=== PATIENT | female | born 1935 | race Caucasian/White ===

== ENCOUNTER 2016-12-20 01:58 | Inpatient (IN) | payer MEDICARE, BC ==
[2016-12-20] VITALS (52 sets, daily range): BP systolic 124–169; BP diastolic 62–115; Ht 167.6 cm; Wt 68.2 kg
[~2016-12-20] VITALS: Ht 167.6 cm; Wt 68.2 kg
[2016-12-20 03:11] LABS: BASOPHILS 0.2 % (0.0-2.0); EOSINOPHILS 0.2 % (0-7); HEMATOCRIT 44.7 % (36.0-48.0); HEMOGLOBIN 14.8 g/dL (12-16); IMMATURE GRANULOCYTES 0.5 % (0-5); LYMPHOCYTES 12.5 % (15-50); MCH 30.6 pg (26.0-34.0); MCHC 33.1 g/dL (31.0-37.0); MCV 92.5 fL (80.0-100.0); MEAN PLATELET VOLUME 12.3 fL (7.4-10.4); MONOCYTES 1.6 % (2-11); PLATELET COUNT 174 10x3/uL (130-400); RBC 4.83 10x6/uL (4.00-5.40); RDW 13.6 % (11.5-14.5); WBC 4.4 10x3/uL (4.8-10.8)
[2016-12-20 03:31] LABS: APTT 44.7 SECONDS (22.8-39.4); INR 1.34 (0.85-1.17); PROTIME 16.4 SECONDS (11.6-15.0)
[2016-12-20 03:32] LABS: ALBUMIN 3.4 g/dL (3.4-5.0); ANION GAP 11.8 mmol/L (8-16); BILIRUBIN - TOTAL 0.97 mg/dL (0.2-1.3); CALCIUM 8.7 mg/dL (8.5-10.1); CREATININE - SERUM 1.2 mg/dL (0.6-1.3); POTASSIUM - SERUM 3.8 mmol/L (3.5-5.1); PROTEIN - SERUM 6.8 g/dL (6.4-8.2)
[2016-12-20 03:48] LABS: TROPONIN-I 0.338 ng/mL (0.000-0.060)
[2016-12-20] MEDS ORDERED: CALCIUM 250+D T1 TAB PO (04:27)
[2016-12-20] MEDS ORDERED: LASIX40 MG PO (04:27)
[2016-12-20] MEDS ORDERED: COREG25 MG PO (04:27)
[2016-12-20] MEDS ORDERED: PRESERVISION AR1 CAP PO (04:28)
[2016-12-20] MEDS ORDERED: KLOR-CON 1010 MEQ PO (04:28)
[2016-12-20] MEDS ORDERED: HYDRALAZINE HCL50 MG PO (04:29)
[2016-12-20] MEDS ORDERED: LEVO-T100 MCG PO (04:29)
[2016-12-20] MEDS ORDERED: BAYER CHEWABLE81 MG PO (04:30)
[2016-12-20] MEDS ORDERED: PROVENTIL HFA6.7 GM INH (04:30)
[2016-12-20] MEDS ORDERED: ATIVAN0.5 MG PO (04:30)
[2016-12-20] MEDS ORDERED: SYSTANE 0.3-0.4%5 ML EACH EYE (04:31)
[2016-12-20] MEDS ORDERED: COZAAR100 MG PO (04:32)
--- NOTE | 2016-12-20 05:00 | NUR ---
0500: Pt rec'd from ER and placed in Room 2308 x3 RNs. Pt able to "scoot" over to bed by self. Pt answers questions with clear verbal responses. Pt has previous hx of cataracts sx. Pt moves x4 extrem vs gravity with no tremor seen. Pt able to stick tongue out with no deviation seen. Pt denies tingling, numbness, or pain at this time.
--- NOTE | 2016-12-20 05:30 | NUR ---
0530: Family here and update provided. Verbalized understanding.
[2016-12-20 05:58] LABS: APPEARANCE CLEAR (CLEAR); BILIRUBIN NEGATIVE (NEGATIVE); COLOR YELLOW (YELLOW); GLUCOSE NEGATIVE (NEGATIVE); KETONE NEGATIVE (NEGATIVE); LEUKOCYTE ESTERASE NEGATIVE (NEGATIVE); NITRITE NEGATIVE (NEGATIVE); PROTEIN NEGATIVE (NEGATIVE); SPECIFIC GRAVITY 1.015 (1.005-1.020); UROBILINOGEN NORMAL (NORMAL)
[2016-12-20 09:29] LABS: TROPONIN-I 0.302 ng/mL (0.000-0.060)
--- NOTE | 2016-12-20 11:00 | NUR ---
NO NOTED CHANGES TO PRIMARY ASSESSMENT. SEE IV FLOW SHEET FOR IV MEDICATION CHANGES
--- NOTE | 2016-12-20 12:29 | NUR ---
NOTED A-FLUTTER ON MONITOR, DR. POWER PAGED WITH NEW ORDER TO CUT CARDIZEM RATE IN HALF, THIS IS DONE.
--- NOTE | 2016-12-20 20:05 | NUR ---
2005: Pt HR 55-60 cAFIB on monitor. Cardizem stopped at this time. Pt SBP 120's.
--- NOTE | 2016-12-20 21:00 | NUR ---
2100: Pt requested something to sleep. Pt states she takes something everynight. Ativan PO admin as per orders.
--- NOTE | 2016-12-20 22:55 | NUR ---
2255: Pt attempting to get OOB. Pt states; "I need to go to bed." Pt assisted back to bed x2 RNs and reoriented via verbal. Pt repositioned for comfort. Pt remains cAFIB 60's on CM with SBP 120-130. Pt moves x4 extrem and other neuro changes from assessment.
[2016-12-21] VITALS (22 sets, daily range): BP systolic 104–185; BP diastolic 55–403
--- NOTE | 2016-12-21 02:00 | NUR ---
0200: Pt resting with eyes closed and open to verbal. LOCx3. Pt continues to remove BP cuff repeatedly. Discussed importance with patient and agrees to keep on.
--- NOTE | 2016-12-21 03:35 | NUR ---
0335: Pt attempting to get OOB. Pt not oriented to place or time. Verbal reorientation given. Pt moves x4 extrem to verbal commands. Pt pupils = round. Pt denies tingling or numbness. No facial droop seen and tongue is midline. Pt remains cAFIB 60's on CM with SBP 140's. Pt removes BP cuff repeatedly even after reorientation. Pt remains breathing RA with RR18x with SPO2 97%. Pt repositioned sitting up HOB 45 degrees and lights on in room. Provided wash cloth for face as well and pt utilizes. Bed Alarm on and audible.
[2016-12-21 04:05] LABS: BASOPHILS 0.1 % (0.0-2.0); EOSINOPHILS 0.1 % (0-7); HEMATOCRIT 42.2 % (36.0-48.0); HEMOGLOBIN 13.8 g/dL (12-16); IMMATURE GRANULOCYTES 0.2 % (0-5); LYMPHOCYTES 11.2 % (15-50); MCH 30.4 pg (26.0-34.0); MCHC 32.7 g/dL (31.0-37.0); MEAN PLATELET VOLUME 12.8 fL (7.4-10.4); MONOCYTES 8.6 % (2-11); NEUTROPHILS 79.8 % (40-80); PLATELET COUNT 163 10x3/uL (130-400); RBC 4.54 10x6/uL (4.00-5.40); RDW 13.7 % (11.5-14.5)
[2016-12-21 04:14] LABS: CALCIUM 8.5 mg/dL (8.5-10.1); CARBON DIOXIDE 29.7 mmol/L (21.0-32.0); CREATININE - SERUM 1.2 mg/dL (0.6-1.3); POTASSIUM - SERUM 3.7 mmol/L (3.5-5.1)
--- NOTE | 2016-12-21 06:33 | NUR ---
0630: Pt sleeping with eyes closed. Difficult to arouse at first, but after lepeated stimulation pt arouses and follows commands. Pt able to swallow without difficulty. Pt remains cAFIB on CM.
--- NOTE | 2016-12-21 19:00 | NUR ---
REPORT RECEIVED AND ASSESSMENT COMPLETED. SEE ASSESSMENT FOR FULL DETAILS. PT IS ALERT AND ORIENTED. VSS WILL MONITOR
--- NOTE | 2016-12-21 21:00 | NUR ---
2100 MEDS GIVEN. VSS. WILL CONTINUE TO MONITOR
--- NOTE | 2016-12-21 23:00 | NUR ---
REASSESSMENT COMPLETED. SEE FLOWSHEET. VSS. WILL MONITOR.
[2016-12-22] VITALS (11 sets, daily range): BP systolic 145–166; BP diastolic 63–99
--- NOTE | 2016-12-22 01:00 | NUR ---
PT RESTING IN ROOM. VSS. WILL COTINUE TO MONITOR
--- NOTE | 2016-12-22 03:00 | NUR ---
REASSESSMENT COMPLETED. SEE FLOWSHEET. VSS. WILL CONTINUE TO MONITOR
--- NOTE | 2016-12-22 05:00 | NUR ---
NO CHANGES IN STATUS AT THIS TIME.
[2016-12-22 06:32] LABS: BASOPHILS 0.4 % (0.0-2.0); EOSINOPHILS 1.6 % (0-7); HEMATOCRIT 43.4 % (36.0-48.0); HEMOGLOBIN 14.2 g/dL (12-16); IMMATURE GRANULOCYTES 0.4 % (0-5); LYMPHOCYTES 21.2 % (15-50); MCH 30.5 pg (26.0-34.0); MCHC 32.7 g/dL (31.0-37.0); MCV 93.3 fL (80.0-100.0); MEAN PLATELET VOLUME 12.5 fL (7.4-10.4); MONOCYTES 13.6 % (2-11); NEUTROPHILS 62.8 % (40-80); PLATELET COUNT 149 10x3/uL (130-400); RBC 4.65 10x6/uL (4.00-5.40); RDW 13.8 % (11.5-14.5)
[2016-12-22 06:46] LABS: ANION GAP 11.9 mmol/L (8-16); CALCIUM 8.4 mg/dL (8.5-10.1); CARBON DIOXIDE 29.5 mmol/L (21.0-32.0); CREATININE - SERUM 1.3 mg/dL (0.6-1.3); POTASSIUM - SERUM 3.4 mmol/L (3.5-5.1)
--- NOTE | 2016-12-22 07:00 | NUR ---
ASSESSMENT PER FLOWSHEET. VOICES NO CO AT TIME.
--- NOTE | 2016-12-22 10:00 | NUR ---
Nutrition follow-up: Diet: Regular with thin liquids PO intake 100% of last 3 meals Labs reviewed Wt: 151# RDN following.
--- NOTE | 2016-12-22 11:53 | NUR ---
Is the patient Alert and Oriented? Yes 0 * How many steps to enter\exit or inside your home? NONE 0 * PCP DR [facility] IN [place], [place] 0 * Pharmacy [facility] 0 * Preadmission Environment Home Alone 0 * ADLs Independent 0 * Equipment None 0 * Other Equipment BLOOD PRESSURE WRIST CUFF 0 * List name and contact numbers for known caregivers / representatives who currently or will assist patient after discharge: Jaci Dye- dtr- [phone] [facility] -[phone] 0 * Community resources currently utilized None 0 * Please name any agencies selected above. N/A 0 * Additional services required to return to the preadmission environment? No 0 * Can the patient safely return to the preadmission environment? Yes 0 * Has this patient been hospitalized within the prior 30 days at any hospital? No 0
--- NOTE | 2016-12-22 12:12 | NUR ---
CM MET W/ THE PATIENT AT HER BEDSIDE. SHE LIVES ALONE. HER DAUGHTER LIVES IN THE SAME TOWN. SHE STATES THE DAUGHTER WILL BE BUILDING A HOME NEAR TO HER. SHE WAS 16 YEARS AGO. SHE ALSO HAS A GRANDDAUGHTER WHO VISITS AND ASSIST HER. PATIENT IS INDEPENDENT. 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 SHE STILL DRIVES. 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 HER HOME HAS NO STAIRS TO ENTER. SHE HAS ELECTRICITY, GAS AND BUILDS A SMALL FIRE DAILY FOR A LITTLE HEAT. SHE HAS NO DME. HAS SAFETY BARS IN THE SHOWER. AMBULATES WITHOUT DEVICE. AMBULATED 175 FT W/ PHYSICAL THERAPY W/ 20% ASSIST AND NO DEVICE. SHE DOES NOT HAVE HOME CARE SERVICES. " I DON'T WANT ANY. I GOING TO BE INDEPENDENT FOR LONG I CAN". PCP- [facility] PATIENT'S DAUGHTER WILL PROVIDE TRANSPORTATION AT TIME OF DISCHARGE. PATIENT'S PLAN IS TO RETURN TO HER HOME AT DISCHARGE. DENIES NEED FOR SERVICES AT PRESENT TIME. ANXIOUS TO GET HOME TO START HER GARDEN. CM TO FOLLOW TO ASSIST MAYBE APPROPRIATE.
--- NOTE | 2016-12-22 12:30 | NUR ---
TO MRI VIA THEN TO MED 2. REPORT CALLED.
--- NOTE | 2016-12-22 14:07 | NUR ---
REC'D PT FROM MRI VIA W/C. PT WAS TRANSFERED TO THIS UNIT FROM ICU. PT IS A/O X3. WEARING GLASSES. PT HAS OWN TEETH. ICU NURSE BROUGHT PT'S BELONGING TO ROOM. CURRENTLY ON RA, RESP EVEN AND UNLABORED. C/O BEING COLD. NURSE COVERED PT IN A WARM BLANKET. IV TO RT FOREARM WITH DRESSING INTACT, AND IS SL. HAND SAWMILL EQUIPMENT OPERATOR EQUAL. SKIN WARM AND DRY, AND INTACT. . STERN CATH PATENT TO BSD WITH APPROX 400ML OF DARK YELLOW URINE IN BAG. PT WEARING ONLY 1 SCD ON LEFT LEG. IN WHICH SHE REQUEST NURSE REMOVE AND STATES " I HATE THAT THING AND I REALLY DON'T WANT TO WEAR THOSE ANYMORE." EDEMA NOTED TO BILATERAL LOWER EXTREMITIES LEFT > THAN RIGHT. PT DENIES PAIN IN CALVES. ORIENTED PT TO ROOM AND CALL LIGHT. PT STATES " I AM GETTING READY TO TAKE A NICE NAP." BED ALARM TURNED ON. PT REQUEST NURSE TURN OFF LIGHT AND DENIES ANY NEEDS AT THIS TIME. WILL CONT. TO MONITOR.
--- NOTE | 2016-12-22 15:19 | NUR ---
PT SLEEPING. HOB ELEVATED. RESP EVEN AND UNLABORED. NO DISTRESS NOTED. CALL LIGHT WITH IN REACH. WILL CONT. TO MONITOR.
--- NOTE | 2016-12-22 17:44 | NUR ---
PT SITTING UP IN BED WATCHING TV. NO DISTRESS NOTED. CALL LIGHT WITH IN REACH. A/O X3. DENIES NEEDS. CALL LIGHT WITH IN REACH. WILL CONT. TO MONITOR.
--- NOTE | 2016-12-22 19:30 | NUR ---
ASSESSMENT COMPLETE, DENIES NEEDS AT THIS TIME. HOB UP SR UP X2, C/L IN REACH. RT FA SL INTACT WITH NO R/S NOTED AT SITE. TELEMETRY IN PLACE SHOWING HR CAFIB WITH BBB PER COURIER. RESERVING LEFT ARM. STERN INTACT AND PATENT WITH YELLOW URINE NOTED IN BAG. REFUSING SCDS. CONTINUE TO MONITOR.
[2016-12-23 01:04] VITALS: BP 158/82
[2016-12-23 04:29] VITALS: BP 156/90
[2016-12-23 05:37] LABS: BASOPHILS 0.7 % (0.0-2.0); EOSINOPHILS 3.9 % (0-7); HEMATOCRIT 45.2 % (36.0-48.0); HEMOGLOBIN 14.5 g/dL (12-16); IMMATURE GRANULOCYTES 0.1 % (0-5); LYMPHOCYTES 17.1 % (15-50); MCH 30.1 pg (26.0-34.0); MCHC 32.1 g/dL (31.0-37.0); MEAN PLATELET VOLUME 12.8 fL (7.4-10.4); MONOCYTES 14.7 % (2-11); NEUTROPHILS 63.5 % (40-80); PLATELET COUNT 154 10x3/uL (130-400); RBC 4.81 10x6/uL (4.00-5.40); RDW 13.7 % (11.5-14.5); WBC 7.3 10x3/uL (4.8-10.8)
[2016-12-23 06:08] LABS: ANION GAP 10.7 mmol/L (8-16); CALCIUM 8.4 mg/dL (8.5-10.1); CARBON DIOXIDE 31.8 mmol/L (21.0-32.0); CREATININE - SERUM 1.4 mg/dL (0.6-1.3); MAGNESIUM - SERUM 1.8 mg/dL (1.8-2.4); PHOSPHOROUS 4.2 mg/dL (2.5-4.9); POTASSIUM - SERUM 3.5 mmol/L (3.5-5.1); THYROID STIMULATING HORMONE 3.3 uIU/mL (0.36-3.74)
--- NOTE | 2016-12-23 08:04 | NUR ---
ASSESSMENT DONE. PT RESTING. EASILY AROUSED. A/OX3. DENIES HEADACHE OR DIZZINESS. PT REFUSING TO WEAR SCD'S HAND RN SOCIAL SERVICES STRONG, LEFT HAND SLIGHTLY WEAKER THAN RIGHT. STERN PATENT TO BSD, DARK YELLOW URINE. DENIES NEEDS AT THIS TIME. CALL LIGHT WITH IN REACH. WILL CONT. TO MONITOR.
[2016-12-23 08:07] VITALS: BP 147/61
--- NOTE | 2016-12-23 09:54 | NUR ---
FINE ARTS CHAIR AT ASSISTING WITH NEEDS. WILL CONT. PLAN OF CARE.
[2016-12-23 12:00] VITALS: BP 121/74
--- NOTE | 2016-12-23 15:40 | NUR ---
PT AMBULATING IN HALLS WITH DAUGHTER. PT USING WALKER. GAIT STEADY.
[2016-12-23 16:08] VITALS: BP 135/67
--- NOTE | 2016-12-23 18:34 | NUR ---
PT'S LEGS SWOLLEN, C/O BILATERAL KNEE PAIN. NO MEDS ORDERED. LOLY CROOKS. OFFERED SCD'S TO PT AGAIN. PT REFUSES. STATES IT MAKE IT HURT WORSE.
--- NOTE | 2016-12-23 19:30 | NUR ---
ASSESSMENT COMPLETE, LYING ON LEFT SIDE, AWAKE ALERT RESP UNLAB TELEMETRY IN PLACE SHOWING HR CAFIBM RT FA SL INTACT WITH NO R/S NOTED AT SITE. STERN CATH INTACT AND PATENT WITH YELLOW URINE NOTED IN BAG. REFUSING SCDS AT THIS TIME. BILAT LEGS SWELLING NOTED WITH LEFT BIGGER THAN RIGHT, C/O RT KNEE PAIN, AWAITING CALL BACK FROM LOLY FOR NEW ORDER. ASSIST WITH REPOSISTION FOR C & C. ZAIRE WELL. HOB UP SR UP X2, C/L IN REACH. CONTINUE TO MONITOR.
[2016-12-23 20:00] VITALS: BP 175/67
--- NOTE | 2016-12-23 20:21 | NUR ---
OT NOTE: PT COMPLETED BED MOB WITH MIN A. PT COMPLETED BUE AROM EXS FOR INCREASED I WITH ADLS. PT COMPLETED GROOMING TASK WITH SET UP. THANK YOU, KIMO QUEZADA
--- NOTE | 2016-12-23 22:00 | NUR ---
HOT PACK PLACED TO RT KNEE FOR PAIN. ZAIRE WELL. C/L IN REACH.
[2016-12-24 00:21] VITALS: BP 151/91
--- NOTE | 2016-12-24 00:30 | NUR ---
EYES CLOSED, RESP UNLAB, AROUSES EAsily, VOICES NO C/O RT KNEE PAIN AT THIS TIME. C/L IN REACH.
--- NOTE | 2016-12-24 03:04 | NUR ---
EYES CLOSED, RESP UNLAB WITH NO S/S OF ACUTE DISTRESS NOTED. C/L IN REACH.
[2016-12-24 04:37] VITALS: BP 147/76
[2016-12-24 06:45] LABS: BASOPHILS 0.4 % (0.0-2.0); EOSINOPHILS 4.5 % (0-7); HEMATOCRIT 45.4 % (36.0-48.0); IMMATURE GRANULOCYTES 0.3 % (0-5); LYMPHOCYTES 14.4 % (15-50); MCH 30.7 pg (26.0-34.0); MEAN PLATELET VOLUME 11.9 fL (7.4-10.4); NEUTROPHILS 68.4 % (40-80); PLATELET COUNT 142 10x3/uL (130-400); RBC 4.88 10x6/uL (4.00-5.40); RDW 13.9 % (11.5-14.5)
[2016-12-24 06:51] LABS: WBC 9.2 10x3/uL (4.8-10.8)
[2016-12-24 06:57] LABS: ANION GAP 10.1 mmol/L (8-16); CALCIUM 8.3 mg/dL (8.5-10.1); CARBON DIOXIDE 30.4 mmol/L (21.0-32.0); CREATININE - SERUM 1.2 mg/dL (0.6-1.3); POTASSIUM - SERUM 3.5 mmol/L (3.5-5.1)
--- NOTE | 2016-12-24 07:38 | NUR ---
ON HEART MONITOR SHOWING CAF W BBB, HR 80. ON ROOM AIR. RIGHT FA SEEN WITH SALINE LOCK. STERN CATH PATENT WITH CLEAR YELLOW. RESERVE LEFT ARM FROM PREVIOUS MASTECTOMY. LEFT LEG IS SEEN TO BE SLIGHTLY LARGER THAN RIGHT LEG. WILL CONTINUE TO MONITOR.
[2016-12-24 08:40] VITALS: BP 143/87
--- NOTE | 2016-12-24 09:37 | NUR ---
Patient Name: PILAR JEREZ Encounter No: [id number] : 1935 Primary Insurance: MEDICARE A & B Anticipated DC Date: Planned Disposition: Inpatient Rehab External Planned Provider: [facility] DCP follow-up note: CM RECEIVED ORDER FOR INPATIENT REHAB PRESCREENING. CM MET WITH PT AND DAUGHTER IN ROOM TO DISCUSS REHAB OPTIONS. PT AND DAUGHTER WOULD LIKE CM [facility] PT'S DAUGHTER REPORTS SHE WILL TRANSPORT PT TO REHAB, IF ACCEPTED, AT DISCHARGE. CM CALLED [facility], , SPOKE TO PEDRO WHO PROVIDED FAX NUMBER FOR REFERRAL AND INFORMED CM THAT EITHER SHE OR JERAD WOULD SCREEN PT FOR INPATIENT REHAB AND NOTIFY CM OF DETERMINATION. CM FAXED REFERRAL TO [facility] INPENDING SALE TO [facility] AT [phone]. CM WAITING [facility]. Ronak Armendariz, CASE MANAGEMENT
--- NOTE | 2016-12-24 09:49 | NUR ---
Rehab Prescreening Consult recieved and the chart was reviewed. She is walking 250 ft with PT, has no swallowing difficulity and minimal needs for OT. She does not qualify for IRF at this time. The CM Leonardo Armendariz has been made aware. Leeanna Barrett RN Clinical Liaison, Rehab
[2016-12-24 12:25] VITALS: BP 135/72
--- NOTE | 2016-12-24 13:22 | NUR ---
OT NOTE: PT OBSERVED SITTING IN CHAIR NEXT TO BEDSIDE COMMODE. REPORTED THAT SHE WAS WAITING FOR A SHOWER BECAUSE SHE HAD AN ACCIDENT. PT DEMONSTRATED UE EXS WHICH WERE PERFORMED PREVIOUS DAY. INSTRUCTED TO CONT TOLERATED
--- NOTE | 2016-12-24 13:49 | NUR ---
Patient Name: PILAR JEREZ Encounter No: [id number] : 1935 Primary Insurance: MEDICARE A & B Anticipated DC Date: 12-25-2016 Planned Disposition: Home Health Service External Planned Provider: TO BE DETERMINED BY PATIENT DCP follow-up note: CM RECEIVED CALL FROM [facility], , SPOKE TO PEDRO WHO INFORMED CM THAT PT WAS NOT ELIGIBLE FOR INPATIENT REHAB. CM NOTIFIED RASHAWN TONEY. CM MET WITH PT AND DAUGHTER IN ROOM, NOTIFIED OF DENIAL, DISCUSSED OUTPATIENT AND HOME HEALTH REHAB SERVICES IF NEEDED. PT WOULD LIKE HOME HEALTH FOR PHYSICAL THERAPY AT HOME. CM PROVIDED CHOICE FORM; PT'S DAUGHTER WILL CALL PT'S PRIMARY DOCTOR FOR RECOMMENDATION OF PROVIDER AND LET CM KNOW OF CHOICE. PT'S DAUGHTER WILL BE AVAILABLE TO TRANSPORT PT HOME AT DISCHARGE. CM WAITING PT'S CHOICE FOR HOME HEALTH PROVIDER AND WILL REQUIRE PHYSICIAN ORDERS TO ARRANGE. Ronak Armendariz, CASE MANAGEMENT
[2016-12-24 15:28] VITALS: BP 134/70
--- NOTE | 2016-12-24 16:27 | NUR ---
RESTING QUIETLY WITH EYES CLOSED, RESP ARE EVEN AND NON LABORED. DAUGHTER AT BEDSIDE. WILL CONTINUE TO MONITOR.
--- NOTE | 2016-12-24 18:22 | NUR ---
OT NOTE: PT COMPLETED SELF FEEDING TASK WITH SET UP. PT COMPLETED BED MOB WITH SBA. THANK YOU, ARACELI QUEZADA/Jacob
--- NOTE | 2016-12-24 19:30 | NUR ---
ASSESSMENT COMPLETE, DENIES NEEDS AT THIS TIME. HOB UP SR U X2, C/L IN REACH. RESP EVEN AND UNLAB, UP WITH ASSIST TO BR AND BSC. ZAIRE WELL. RT FA SL INTACT WITH NO R/S NOTED AT SITE. RESERVING L ARM. REFUSING TO WEAR SCDS, LEFT LEG MORE SWOLLEN THAN RIGHT LEG. CONTINUE TO MONITOR.
[2016-12-24 20:04] VITALS: BP 127/76
[2016-12-25] VITALS (8 sets, daily range): BP systolic 127–173; BP diastolic 66–107
--- NOTE | 2016-12-25 01:07 | NUR ---
EYES CLOSED, RESP UNLAB, TELEMETRY IN PLACE SHOWING HR CAFIB WITH BBB. NO S/S OF ACUTE DISTRESS NOTED. C/L IN REACH.
[2016-12-25 05:34] LABS: BASOPHILS 0.6 % (0.0-2.0); EOSINOPHILS 4.7 % (0-7); HEMATOCRIT 46.8 % (36.0-48.0); HEMOGLOBIN 15.2 g/dL (12-16); IMMATURE GRANULOCYTES 0.3 % (0-5); LYMPHOCYTES 17.4 % (15-50); MCH 30.5 pg (26.0-34.0); MCHC 32.5 g/dL (31.0-37.0); MCV 93.8 fL (80.0-100.0); MEAN PLATELET VOLUME 11.9 fL (7.4-10.4); MONOCYTES 11.8 % (2-11); NEUTROPHILS 65.2 % (40-80); PLATELET COUNT 140 10x3/uL (130-400); RBC 4.99 10x6/uL (4.00-5.40); RDW 14.1 % (11.5-14.5); WBC 7.9 10x3/uL (4.8-10.8)
[2016-12-25 06:04] LABS: ANION GAP 13.2 mmol/L (8-16); CALCIUM 8.8 mg/dL (8.5-10.1); CARBON DIOXIDE 28.5 mmol/L (21.0-32.0); CREATININE - SERUM 1.2 mg/dL (0.6-1.3); POTASSIUM - SERUM 3.7 mmol/L (3.5-5.1)
--- NOTE | 2016-12-25 07:32 | NUR ---
B/P WAS 173/102. AM MEDICATION FOR BLOOD PRESSURE GIVEN EARLY. DENIES ANY NEEDS AT PRESENT TIME. ON HEART MONITOR SHOWING CAF W BBB, HR 79. ON ROOM AIR. SALINE LOCK SEEN TO RIGHT FA. RESERVE LEFT ARM. LEFT LEG IS STILL SLIGHTLY LARGER THAN RIGHT. WILL CONTINUE TO MONITOR.
--- NOTE | 2016-12-25 09:32 | NUR ---
UP IN CHAIR AT THIS TIME
--- NOTE | 2016-12-25 11:55 | NUR ---
1155-CALLED TO ROOM PER STUDENT AND INSTRUCTOR. PATIENT'S HR IS 47, LISTLESS LOOKING. ON ROOM AIR. O2 SAT WAS 88 %. CHECKED FINGER STICK BLOOD SUGAR 144. PLACED ON 2L PER NC, O2 SAT UP TO 94% NOW. 1156-HR NOW UP TO 71, STILL CAF. PATIENT IS MORE ALERT NOW. WILL CONTINUE TO MONITOR.
--- NOTE | 2016-12-25 13:37 | NUR ---
Nutrition follow-up: Diet: low sodium PO intake ~60% average of last 6 meals Labs reviewed Wt: 146# PO intake slightly decreased since admit; pt with no c/o at this time. Will continue to provide food choices with selective menus and honor food preferences. RDN will order Ensure BID. Following.
--- NOTE | 2016-12-25 18:04 | NUR ---
JUST FINISHING SUPPER, DENIES NEEDS AT PRESENT TIME. NO MORE "LISTLESSNESS" SEEN AT LUNCH TIME. WILL CONTINUE TO MONITOR.
--- NOTE | 2016-12-25 18:44 | NUR ---
OT NOTE: PT COMPLETED GROOMING TASK WITH SET UP. PT COMPLETED BED MOB WITH SBA. PT COMPLETED BUE AROM IN ALL PLANES FOR INCREASED ACTIVITY TOLERANCE. THANK YOU, ARACELI QUEZADA/Jacob
--- NOTE | 2016-12-25 19:42 | NUR ---
SPANISH TEACHER AT BEDSIDE TO OBTAIN VITALS, CALL LIGHT IN REACH. WILL CONTINUE WITH PLAN OF CARE.
--- NOTE | 2016-12-25 20:10 | NUR ---
RESTING IN BED. ALERT CONVERSANT. ATTEMPTED TO ADMINISTER PT MEDICATIONS. PT HANDED CONTAINER BACK AND ASKED IF I WANTED IT BACK. INFORMED PT THAT THERE WAS MEDICATION IN CONTAINER FOR HER TO TAKE. PT STATED OH. AND THEN PROCEDED TO TAKE MEDICATION. PT DENIES FURTHER NEEDS. NO ACUTE DISTRESS NOTED.
[2016-12-26 04:00] VITALS: BP 135/73
--- NOTE | 2016-12-26 07:32 | NUR ---
DENIES NEEDS AT PRESENT TIME, RECEIVEING UPDRAFT TREATMENT AT THIS TIME. ON HEART MONITOR SHOWING CAF, HR 60. ON 2L PER NC, SALINE LOCK SEEN TO RIGHT FA. RESERVE LEFT ARM. CALL LIGHT IN USE, WILL CONTINUE TO MONIOTR.
[2016-12-26 10:00] VITALS: BP 152/73
[2016-12-26] MEDS ORDERED: ELIQUIS2.5 MG PO (10:39)
[2016-12-26] MEDS ORDERED: NORMODYNE / TR100 MG PO (10:39)
[2016-12-26] MEDS ORDERED: BETAPACE 80 MG80 MG PO (10:39)
--- NOTE | 2016-12-26 12:09 | NUR ---
Patient Name: PILAR JEREZ Encounter No: [id number] : 1935 Primary Insurance: MEDICARE A & B Anticipated DC Date: 12-26-2016 Planned Disposition: Home Health Service External Planned Provider: [facility] IV follow-up note: CM RECEIVED DISCHARGE ORDERS, SPOKE TO PT AND DAUGHTER IN ROOM. BOTH IN AGREEMENT WITH DISCHARGE HOME TODAY, BOTH REQUESTED HOME HEALTH FOR DISCHARGE HOME (NURSING AND PT). PT'S DAUGHTER HAS SPOKEN TO PT'S PRIMARY DOCTOR'S OFFICE AND WANTS CARE IV. CHOICE SIGNED BY PT. IMPORTANT MESSAGE FROM MEDICARE PROVIDED AND EXPLAINED. CM OBTAINED HOME HEALTH ORDER. HANDY CALLED [facility], , SPOKE TO ANTONIO AND PROVIDED HOME HEALTH REFERRAL. HANDY ADVISED ANTONIO THAT THE MED LICENSED FUNERAL DIRECTOR AND EMBALMER WOULD NOT SIGN ORDERS FOR FACE TO FACE FOR HOME HEALTH. ANTONIO WILL CONTACT PT'S PRIMARY CARE DOCTOR FOR ORDERS. ANTONIO ADVISED THAT PT CANNOT BE ADMITTED UNTIL THURSDAY AT THE EARLIEST. HANDY ADVISED PT AND DAUGHTER, BOTH REPORT THIS TO BE ACCEPTABLE AND DO NOT WANT TO CHANGE TO ANOTHER PROVIDER. HANDY FAXED DISCHARGE INFORMATION AND REFERRAL TO [phone]. PT AND DAUGHTER NOTIFIED. NO FURHTER DISCHARGE NEEDS IDENTIFIED. Ronak Armendariz, CASE MANAGEMENT
[2016-12-26] MEDS ORDERED: BAYER CHEWABLE81 MG PO (12:18)
--- NOTE | 2016-12-26 12:44 | NUR ---
PER PATIENT'S DAUGHTER SHE WOULD LIKE THE WRITTEN RX CALLED INTO [facility] IN [place], .
--- NOTE | 2016-12-26 12:53 | NUR ---
SALINE LOCK REMOVED WITH CATH TIP INTACT. CALLED [facility] IN [place] AND GAVE HER THE WRITTEN MEDS THAT NEEDED TO BE CALLED IN. VERBAL AND WRITTEN DISCHARGE INSTRUCTIONS GIVEN TO PATIENT AND DAUGHTER. DISCHARGED HOME VIA WHEELCHAIR.
--- NOTE | 2017-01-27 08:17 | EC ---
PATIENT:PILAR JEREZ DATE OF SERVICE: 12/20/16 SEX: F MEDICAL RECORD: [id number] DATE OF : [birth year] LOCATION:D.M2 D.213 AGE OF PATIENT: 81 ADMISSION DATE: 12/20/16 REFERRING PHYSICIAN: INTERPRETING PHYSICIAN: ADA MESSINA M.D. ECHOCARDIOGRAM REPORT ECHO CHARGES 4 ECHO COMPLETE CLINICAL DIAGNOSIS: A-FIB/CVA ECHOCARDIOGRAPHIC MEASUREMENTS (adult normal given) AC root (d.<3.7cm) 2.7 LV Septum d (<1.2 cm> 1.6 Valve Excursion 1.5 LV Septum (systole) 2.0 Left Atria (s.<4.0cm> 4.6 LVPW d(<1.2cm) 1.6 RV (d.<2.3cm) 2.3 LVPW (sytole) 2.2 LV diastole(<5.6CM) 4.0 MV E-F(>70mm/sec) LV systole 2.7 LVOT Diameter 1.7 MV exc.(>10mm) Est.ejection fraction (50-75%) Pericardial Effusion N DOPPLER: LVIT A E 124 LA RVSP 46.0 LVOT 68.0 AOP1/2T Asc. Ao 169 RVOT 77.0 RA PA 114 AV Gradient Peak 11.4 AV Mean 5.8 AV Area 0.8 MV Gradient Peak 7.5 MV Mean 2.4 MV Area COMMENTS: Delivery Motorcycle Driver: Merry CASTILLOOE Technology Support Analyst:2 Dr. Messina TAPE# PACS DATE OF SERVICE: 12/20/2016 Echocardiogram There is moderate LV dysfunction noted. Estimated ejection fraction is in the order of 35%. Mitral valve is structurally normal. There is moderate regurgitation seen. Left atrium is moderately dilated. The aortic valve leaflets are thickened. However, there is no stenosis or regurgitation seen. Right ventricle is normal size and function. Tricuspid valve is structurally normal. There is moderate regurgitation seen. Right atrium is normal size. ECHOCARDIOGRAM REPORT [id number] PILAR JEREZ There is no pericardial effusion noted. IMPRESSION: 1. Left ventricular hypertrophy with moderate LV dysfunction with ejection fraction of 35%. 2. Moderate tricuspid regurgitation. 3. Moderate mitral regurgitation. 4. No evidence of any mass or thrombus in left ventricle. 5. No evidence of AST, VSD, or PFO. TRANSINT:[id number] Voice Confirmation ID: [id number] DOCUMENT ID: [id number] 12/25/2016 Edited to correct date of service, ADA Young M.D. at 0817 CC: [id number] DICTATION DATE: 12/21/16 0748 OCEANOGRAPHY TEACHER: 12/24/16 1348 DIS IN 12/26/16 [place] [id number]
--- NOTE | 2017-03-06 10:11 | DS ---
PATIENT:PILAR JEREZ :[birth year] MEDICAL RECORD: [id number] DISCHARGE SUMMARY ADMISSION DATE: 12/20/16 DISCHARGE DATE: 12/26/16 DATE OF ADMISSION: 12/20/2016 DATE OF DISCHARGE: 12/26/2016 ADMITTING DIAGNOSES: 1. Hemorrhagic stroke 2. Atrial fibrillation. 3. Acute systolic congestive heart failure. 4. Hypertension. 5. Hypothyroid disease. 6. History of breast cancer. 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 Details are well-outlined in the history of the present illness, H&P. All events, lab procedures, diagnostic testing are well documented in the records. She was admitted to the intensive care unit. CONSULTANTS: Dr. Núñez, neurology, Dr. Messina, cardiology. She was stabilized and transferred to the telemetry floor, remained in uncontrolled AFib, MRI of the brain, ischemia on the right with cerebral hemorrhagic conversion, no mets. Dr. Núñez recommended a low dose anticoagulation. Dr. Messina started her on sotalol with an attempt to convert her to sinus rhythm and started her on a low dose Eliquis for anticoagulation as well. She was on sotalol. After these events, she went into a sinus mary beth. This was discussed with Dr. Messina who was okay with discharging the patient home. Her daughter was here and driving her to [place]. She will follow up with her primary care physician in 1 week. She had follow up with Dr. Messina in 3 weeks or she could follow with the template fitter in [place]. Discussed with daughter and the patient anticoagulation and associated risk and benefits. She was dismissed home. Please refer to med rec. Her new medicine was Eliquis 2.5 b.i.d. Her new blood pressure medicine labetalol 100 p.o. t.i.d. and sotalol 40 p.o. b.i.d. Please refer to her med rec. Vital signs at the time of discharge: She was afebrile, pulse up to 62, respirations 22, blood pressure 152/73, O2 sat 99%. LABORATORY DATA: White count 7.9, hemoglobin 15, platelets 140. Sodium 142, potassium 3.7, chloride 104, CO2 28.5, BUN 29, serum creatinine 1.2, glucose 125. DIAGNOSES: Hemorrhagic stroke, AFib, converted to sinus mary beth, on anticoagulation with Eliquis, acute systolic congestive heart failure, hypertension, hypothyroid disease, breast cancer by history. Greater than 30 minutes spent on this discharge. TRANSINT:[id number] Voice Confirmation ID: [id number] DOCUMENT ID: [id number] DISCHARGE SUMMARY REPORT [id number] PILAR JEREZ Dictated By: LOLY TONEY RN I have interviewed/examined the above patient and agree with these documented findings. PADMAJA MATA DO at 1011 at 1646 CC: [id number] DICTATION DATE: 03/04/17 1654 [facility] ATTENDANT: 03/05/17 1616 DIS IN 12/26/16 [facility] [address] [place] [address]
== END 2016-12-26 12:59 | disposition home health service (06) | DRG 64 ==
LOC: D.ER 01:58 → D.M2 03:38 → D.ICU 03:38 → D.M2 12-22 13:13
PROVIDERS: Emergency Medicine; ADMIT Emergency Medicine
DX: I63.511 Cerebral infarction due to unspecified occlusion or stenosis of right middle cerebral artery (principal); I50.21 Acute systolic (congestive) heart failure; I13.0 Hypertensive heart and chronic kidney disease with heart failure and stage 1 through stage 4 chronic kidney disease, or unspecified chronic kidney disease; I48.91 Unspecified atrial fibrillation; E03.9 Hypothyroidism, unspecified; Z85.3 Personal history of malignant neoplasm of breast; N18.3 Chronic kidney disease, stage 3 (moderate); R40.2143 Coma scale, eyes open, spontaneous, at hospital admission; R40.2363 Coma scale, best motor response, obeys commands, at hospital admission; R40.2253 Coma scale, best verbal response, oriented, at hospital admission